=== PATIENT | male | born 1955 | race Asian ===

== ENCOUNTER 2025-02-19 09:22 | Emergency (ER) | payer OTHER ==
[~2025-02-19] VITALS: Ht 165.1 cm; Wt 79.4 kg
[2025-02-19 09:36] VITALS: BP 161/93
[2025-02-19] MEDS ORDERED: METPRE4DP PO (09:55)
[2025-02-19] MEDS ORDERED: OXYC5 PO (09:55)
== END 2025-02-19 10:06 | disposition home or self-care (01) ==
LOC: ER 09:22
DX: M54.32 Sciatica, left side (principal)
CPT/HCPCS: 99283